=== PATIENT | female | born 2000 | race Caucasian/White ===

== ENCOUNTER 2021-10-14 14:08 | Emergency (ER) | payer BC, SELFPAY ==
--- NOTE | ~2021-10-14 | US_ITS ---
EXAMINATION: US pelvic complete w TV EXAM DATE: 10/14/2021 15:09 INDICATION: Pelvic pain. TECHNIQUE: Pelvic transabdominal and transvaginal sonogram was performed. There are multiple graysca le and Doppler images available for interpretation. There is no prior study for comparison. FINDINGS: Uterus measures 7.5 x 4.3 x 3.3 cm, is anteverted and morphologically normal. Endometrial stripe measures 6 mm, within normal limits. There is no free pelvic fluid. Right adnexa: The ovary measures 2.9 x 2.5 x 2.6 cm and is morphologically normal. Ovarian vascular f low confirmed. Left adnexa: The ovary measures 2.8 x 1.6 x 2.0 cm and is morphologically normal. Ovarian vascular fl ow confirmed. IMPRESSION: 1. Unremarkable pelvic ultrasound exam. Reviewed, dictated and finalized at location [facility] [employer] [employer]
[2021-10-14 14:15] VITALS: BP 122/102; PULSE 64; RESP 18; TEMP 36.8; O2SAT 100
--- NOTE | 2021-10-14 14:40 | ED.GENADULT ---
HPI - General Adult General Chief complaint: [employer] Stated complaint: vaginal bleeding Time Seen by Provider: 10/14/21 14:14 Source: RN notes reviewed History of Present Illness HPI narrative: Patient presents emergency department from home for vaginal bleeding. Patient states she had vaginal bleeding began this morning with passage of blood clots x2 today. Patient states that she is unsure if she is with last menstrual period being September 17 she notes lower abdominal pain described as cramping denies any fevers or chills chest pain shortness of breath or any other symptoms. States she has not taken any home test Related Data Home Medications Medication Instructions Recorded Confirmed escitalopram oxalate mg 10/14/21 10/14/21 Allergies Allergy/AdvReac Type Severity Reaction Status Date / Time No Known Allergies Allergy Mild Verified 10/14/21 14:25 Review of Systems Review of Systems: Gen.: Denies fevers or chills ENT: Denies congestion Respiratory: Denies shortness of breath or cough CV: Denies chest pain or palpitations GI: Denies abdominal pain nausea, emesis or diarrhea see HPI Musculoskeletal: Denies back pain or muscle pain Neuro: Denies numbness, tingling, weakness or focal weakness Skin: Denies rash Except as documented, all other systems reviewed and negative PMF Past Medical History Medical History (Updated 10/14/21 @ 15:27 by Mina Yan DO) Patient denies significant medical history Social History Social History (Updated 10/14/21 @ 14:41 by Mina Yan DO) Smoking status: Never smoker Exam Narrative: APPEARANCE: No acute distress, nontoxic, resting in bed EYES: EOMI HEENT: Normocephalic, atraumatic, OMM RESPIRATORY: No respiratory distress Clear to auscultation bilaterally with no rhonchi wheezing or rales. CARDIOVASCULAR: Regular rate and rhythm without murmurs rubs or gallops. ABDOMINAL: Soft, n nondistended mild tenderness in the lower quadrant left lower quadrant no tenderness right upper quadrant left upper quadrant no rebound or guarding : Normal external exam, small amount of dark maroon blood with clots in vaginal canal cervix is closed MUSCULOSKELETAl: Moves all extremities. NEURO: Awake and alert. Following commands, speech normal, no focal deficits SKIN:: Warm, dry. No rashes lesions or abrasions PSYCHIATRIC: Normal affect/mood, Course Course Emergency Course: Discussed with patient results of workup and diagnosis. Discussed need for follow-up with primary care, proper use of medication, and reasons to return to the emergency department. Patient understands and agrees to current treatment plan Vital Signs Vital signs: Vital Signs Temperature 98.2 F 10/14/21 14:15 Pulse Rate 64 10/14/21 14:15 Respiratory Rate 18 10/14/21 14:15 Blood Pressure 122/102 H 10/14/21 14:15 Pulse Oximetry 100 10/14/21 14:15 Temperature 98.2 F 10/14/21 14:15 Pulse Rate 64 10/14/21 14:15 Respiratory Rate 18 10/14/21 14:15 Blood Pressure 122/102 H 10/14/21 14:15 Pulse Oximetry 100 10/14/21 14:15 Medical Decision Making Vital Signs Vital Signs: Vital Signs Temperature 98.2 F 10/14/21 14:15 Pulse Rate 64 10/14/21 14:15 Respiratory Rate 18 10/14/21 14:15 Blood Pressure 122/102 H 10/14/21 14:15 Pulse Oximetry 100 10/14/21 14:15 Temperature 98.2 F 10/14/21 14:15 Pulse Rate 64 10/14/21 14:15 Respiratory Rate 18 10/14/21 14:15 Blood Pressure 122/102 H 10/14/21 14:15 Pulse Oximetry 100 10/14/21 14:15 Lab Data Result diagrams: 10/14/21 14:42 Labs: Lab Results 10/14/21 Range/Units 14:42 WBC 8.0 (4.5-10.0) K/mm3 RBC 5.19 (4.2-5.4) M/mm3 Hgb 16.2 H (12.0-15.0) g/dL Hct 47.4 H (37.0-47.0) % MCV 91.3 (80-100) fl MCH 31.2 (26-34) pg MCHC 34.2 (32-36) g/dl RDW 12.1 (11.5-14.5) % Plt Count 273 (150-375) k/mm3 MPV 9.2 (7.4-10.4) fl [place]
[2021-10-14 14:51] LABS: Basophils Absolute Auto 0.1 K/mm3 (0.0-0.1); Basophils Percent Auto 0.6 % (0.2-1.2); Eosinophils Percent Auto 0.5 % (0-4.4); Hematocrit 47.4 % (37.0-47.0); Hemoglobin 16.2 g/dL (12.0-15.0); Immature Granulocyte Absolute 0.02 K/mm3 (0.00-0.031); Immature Granulocyte Percent A 0.3 % (0-0.5); Lymphocytes Absolute Auto 2.73 K/mm3 (0.9-3.2); Lymphocytes Percent Auto 34.2 % (18.3-44.2); Mean Corpuscular HGB Conc 34.2 g/dl (32-36); Mean Corpuscular Hemoglobin 31.2 pg (26-34); Mean Corpuscular Volume 91.3 fl (80-100); Mean Platelet Volume 9.2 fl (7.4-10.4); Monocytes Absolute Auto 0.4 K/mm3 (0.1-0.6); Neutrophils Absolute Auto 4.8 K/mm3 (1.3-6.7); Neutrophils Percent Auto 59.4 % (45.5-73.1); Platelet Count Result 273 k/mm3 (150-375); Red Blood Count 5.19 M/mm3 (4.2-5.4); Red Cell Distribution Width 12.1 % (11.5-14.5)
== END 2021-10-14 15:37 | disposition home or self-care (01) ==
PROVIDERS: Emergency Provider Emergency Medicine
DX: N93.8 Other specified abnormal uterine and vaginal bleeding (principal)
CPT/HCPCS: 36415; 76830; 76856; 81025; 85025; 99284